=== PATIENT | male | born 1955 | race Caucasian/White ===

== ENCOUNTER 2016-11-19 10:22 | Inpatient (IN) | payer BC ==
[2016-11-19 10:28] VITALS: BMI 39.4
--- NOTE | 2016-11-19 10:43 | PDOC ---
History of Present Illness - General Chief Complaint: Chest Pain Stated Complaint: CHEST PAIN (PCP SENT) Time Seen by Provider: 11/19/16 10:41 History Source: Patient Exam Limitations: No Limitations - History of Present Illness Initial Comments: 11/19/16 10:42 CHIEF COMPLAINT: Chest pain HISTORY OF PRESENT ILLNESS: This is a 61 year old male former smoker (quit 4 months ago) with a history of HTN referred for evaluation from his PCP's office. He complains that yesterday while at rest, he developed squeezing left- sided chest pain with associated shortness of breath and diaphoresis. Chest pain has resolved but he still has some left arm pain, and he continues to feel short of breath. He denies cough, fevers/chills, orthopnea, PND, LE edema, or any other symptoms. V/s on arrival are notable for BP 166/98 and RR 22. PCP is Dr. Renee. REVIEW OF SYSTEMS: GENERAL/CONSTITUTIONAL: No fever or chills. No weakness. No weight change. HEAD, EYES, EARS, NOSE AND THROAT: No change in vision. No ear pain or discharge. No sore throat. CARDIOVASCULAR: See HPI. RESPIRATORY: No cough or wheezing. GASTROINTESTINAL: No nausea, vomiting, diarrhea or constipation. GENITOURINARY: No dysuria, frequency, or change in urination. MUSCULOSKELETAL: No joint or muscle swelling or pain. No neck or back pain. SKIN: No rash or easy bruising. NEUROLOGIC: No headache, vertigo, loss of consciousness, or loss of sensation. PSYCHIATRIC: Anxiety/stress. ENDOCRINE: No increased thirst. No abnormal weight change. HEMATOLOGIC/LYMPHATIC: No anemia, easy bleeding, or history of blood clots. ALLERGIC/IMMUNOLOGIC: No hives or skin allergy. No latex allergy. PHYSICAL EXAM: GENERAL: The patient is awake, alert, and fully oriented, in no acute distress. HEAD: Normal with no signs of trauma. ENT: Pupils equal, round and reactive to light, extraocular movements intact, sclera anicteric, conjunctiva clear. Neck supple. LUNGS: Tachypneic. Able to speak full sentences. Lungs CTAB. CV: RRR, S1/S2, no MRG. Cap refill < 2 sec. ABDOMEN: Soft, obese, non-tender. EXTREMITIES: Normal range of motion. 1+ pitting LE edema bilaterally. NEUROLOGICAL: Normal speech, normal gait. CN II-XII grossly intact. PSYCH: Normal mood, normal affect. SKIN: Warm, dry, normal turgor, no rashes or lesions noted. Past History - Past Medical History Allergies/Adverse Reactions: Allergies Allergy/AdvReac Type Severity Reaction Status Date / Time No Known Allergies Allergy Verified 11/19/16 10:28 Home Medications: Ambulatory Orders Aspirin [ASA -] 81 mg PO DAILY 11/19/16 - Psycho/Social/Smoking Cessation Hx Suicidal Ideation: No Smoking History: Never smoked Have you smoked in the past 12 months: No Information on smoking cessation initiated: No *Physical Exam - Vital Signs Last Vital Signs Temp Pulse Resp BP Pulse Ox 98 F 70 18 166/98 97 11/19/16 10:25 11/19/16 10:25 11/19/16 10:25 11/19/16 10:25 11/19/16 10:25 Heart Score/ECG Review - History History: Moderately suspicious - Electrocardiogram EKG: Normal - Age Age: 45-65 - Risk Factors Risk Factors Heart Score: Yes Hx Hypertension, Yes Hx Obesity Based on the list above the patient has:: 1-2 risk factors - Troponin Troponin: </= normal limit - Score Heart Score - Total: 3 - ECG Intrepretation Comment:: 11/19/16 10:51 NSR at 67 bpm, no ST or T wave changes ED Treatment Course - LABORATORY CBC & Chemistry Diagram: 11/19/16 11:10 11/19/16 11:10 Medical Decision Making - Medical Decision Making 11/19/16 11:27 A/P: 61 year old male with chest pain and SOB. 1. EKG 2. CXR: cardiomegaly, pulmonary vascular congestion 3. Cardiac labs 4. ASA 162mg 5. Lasix 20mg IVP 6. Cardiology consultation - seen by Dr. Miller, recommends adding nitro SL 7. Admit - discussed with Dr. Beaver *DC/Admit/Observation/Transfer Diagnosis at time of Disposition: Chest pain, Shortness of breath - Discharge Dispostion Admit: Yes - Referrals Referrals: Chintan Renee MD [Primary Care Provider] -
[2016-11-19] MEDS ORDERED: ASPIRIN 81 MG CHEWABLE TABLETS PO ONE (10:56)
[2016-11-19 11:17] LABS: BASOPHIL 0.8 % (0-2.0); EOSINOPHIL 2.2 % (0-4.5); MCH 33.3 pg (25.7-33.7); MCHC 33.9 g/dl (32.0-35.9); MEAN CELL VOLUME 98.2 fl (80-96); MEAN PLT VOLUME 9.1 fl (7.5-11.1); NEUTROPHILS 65.9 % (42.8-82.8); PLATELET COUNT 183 K/MM3 (134-434); RDW 13.3 % (11.9-15.9); WHITE BLOOD COUNT 8.6 K/mm3 (4.0-10.0)
[2016-11-19] MEDS ORDERED: FUROSEMIDE 40 MG/4 ML INJECTABLE VIAL IVPUSH ONE (11:21)
[2016-11-19] MEDS ORDERED: METOPROLOL TARTRATE 50 MG TABLET (FP) PO ONE (11:26)
--- NOTE | 2016-11-19 11:32 | CON.CARD ---
Consult Consult Specialty:: cardio Referred by:: niko Reason for Consultation:: cp, sob - History of Present Illness Chief Complaint: same History of Present Illness: 61 yo male presented from pmd office, with cp yesterday. had nonexertional L cp yesterday. occurred at approximately 5pm, while seated on cough. upper L pectoral region, no radiation and no assctd diaph/sob/LH. lasted all night, fell asleep off and on but constantly present--though much milder than at onset. persisted since awoke this am. assctd as well with localized upper, medial L arm discomfort though cp not radiating. not positional or pleuritic. never had it before. earlier in the day he noted mild sob at rest and with walking, no difference. not assctd with the cp. has had this sob off and on, same exact sx, ever since quit smoking 4 mo ago EKG in ER: NSR, WNL CXR: not yet reported, reviewed by me--? vasc redistribution and mild interstitial edema (vs soft tissue marking); normal CMS; no effusions PMH: obesity HTN cigs (quit few mo ago) - Smoking History Smoking history: Never smoked Have you smoked in the past 12 months: No Home Medications - Allergies Allergies/Adverse Reactions: Allergies Allergy/AdvReac Type Severity Reaction Status Date / Time No Known Allergies Allergy Verified 11/19/16 10:28 - Home Medications Home Medications: Ambulatory Orders Aspirin [ASA -] 81 mg PO DAILY 11/19/16 Family Disease History - Family Disease History Family History: Denies (no MIs) Review of Systems - Review of Systems Constitutional: denies: Chills, Fever Eyes: denies: Eye Pain HENT: denies: Nasal Congestion Neck: denies: Stiffness Cardiovascular: denies: Palpitations Respiratory: denies: Orthopnea, PND Gastrointestinal: denies: Diarrhea, Rectal Bleeding Genitourinary: denies: Burning, Hematuria Musculoskeletal: denies: Muscle Pain Integumentary: denies: Rash Neurological: denies: Numbness, Seizure, Syncope Endocrine: denies: Excessive Sweating Hematology/Lymphatic: denies: Excessive Bleeding Vital Signs: Vital Signs Temperature 98 F 11/19/16 10:25 Pulse Rate 70 11/19/16 10:25 Respiratory Rate 18 11/19/16 10:25 Blood Pressure 166/98 11/19/16 10:25 O2 Sat by Pulse Oximetry (%) 98 11/19/16 11:13 Constitutional: Yes: Well Nourished, No Distress Eyes: No: Sclera Icterus HENT: No: Nasal Congestion Neck: No: Decreased ROM Respiratory: Yes: CTA Bilaterally. No: Accessory Muscle Use, Rales, Wheezes Gastrointestinal: Yes: Normal Bowel Sounds. No: Distention, Hepatomegaly, Palpable Mass, Tenderness Cardiovascular: Yes: Regular Rate and Rhythm JVD: No Carotid Bruit: No PMI: Non-Displaced Heart Sounds: Yes: S1, S2. No: Gallop Murmur: No: Systolic Murmur, Diastolic Murmur Musculoskeletal: Yes: Other (No kyphosis no chest wall tendernedss) Extremities: No: Cold, Cyanosis Edema: No Peripheral Pulses: 2+ Left Carotid, 2+ Right Carotid, 2+ Left Doralis Pedis, 2+ Right Dorsalis Pedis Integumentary: No: Jaundice Neurological: Yes: Alert, Oriented (x3) Psychiatric: No: Agitated - Other Data Labs, Other Data: CBC, BMP 11/19/16 11:10 Assessment/Plan chest pain, possibly unstable angina: -no ekg changes -troponin x 1 pending (note: pain occurred yesterday approximately 5pm) -given cp has not remitted for >12 hours now, if enzymes and ekg normal, it is highly unlikely sec to acute plaque rupture/ACS -will plan nuclear stress test here in hospital (today vs tomorrow, depending on enzymes) -trial of SL nitro x 1 now HTN: -initial bp elevated -observe trend sob: -sx began since quit cigs -suspect copd -cxr equivocal for chf, neck veins tds (habitus) -ok with one dose iv lasix (ordered in ER) -check echo -bnp
[2016-11-19 11:34] LABS: INR 1.02 (0.82-1.09); PROTHROMBIN TIME (PATIENT) 11.2 SEC (9.98-11.88)
[2016-11-19 11:37] LABS: ALBUMIN 3.6 g/dl (3.4-5.0); ANION GAP 10 (8-16); BILIRUBIN,TOTAL 0.6 mg/dL (0.2-1.0); CALCIUM 8.7 mg/dL (8.5-10.1); CO2 26 mmol/L (21-32); CREATININE 0.6 mg/dL (0.7-1.3); GLUCOSE,RANDOM 114 mg/dL (74-106); SGOT/AST 19 U/L (15-37); SGPT/ALT 45 U/L (12-78); TOT PROT 6.8 g/dl (6.4-8.2)
[2016-11-19] MEDS ORDERED: NITROGLYCERIN SUBLINGUAL 1/150 0.4 MG TAB SL ONE (11:38)
[2016-11-19 11:40] LABS: ALK PHOS 68 U/L (45-117); TROPONIN I < 0.02 ng/ml (0.00-0.05)
[2016-11-19] MEDS ORDERED: ASPIRIN 81 MG CHEWABLE TABLETS ONE (11:41)
[2016-11-19] MEDS ORDERED: NITROGLYCERIN SUBLINGUAL 1/150 0.4 MG TAB ONE (11:41)
[2016-11-19] MEDS ORDERED: FUROSEMIDE 40 MG/4 ML INJECTABLE VIAL ONE (11:42)
[2016-11-19] MEDS ORDERED: ACETAMINOPHEN 325 MG TABLET (FP) PO PRN (20:51)
[2016-11-19 21:16] LABS: TROPONIN I < 0.02 ng/ml (0.00-0.05)
[2016-11-19] MEDS ORDERED: ATORVASTATIN CA 20 MG TABLET (FP) PO SCH (22:00)
--- NOTE | 2016-11-20 02:04 | HP ---
Admitting History and Physical - Primary Care Physician PCP: Chintan Renee - Admission Chief Complaint: Chest pain History of Present Illness: progress note for 11/20/19, Around 4 PM yesterday while watching TV developed severe chest pain with severe tightness without any diaphoresis or SOB which continue for about an hour, went to his bed and fell a sleep, woke up couple of hours later and still had chest pain but less. This AM continued to have chest pain and came to my office and was sent to ED. EKG as well enzymes were normal. Was seen by Dr. Ra Miller and admitted for possible IHD. He is a diabetic with HTN, hyperlipidemia, smoking history and severe obesity. History Source: Patient Limitations to Obtaining History: No Limitations - Past Medical History Cardiovascular: Yes: HTN, Hyperlipdemia Pulmonary: Yes: COPD Musculoskeletal: Yes: Chronic low back pain - Smoking History Smoking history: Current every day smoker Have you smoked in the past 12 months: Yes - Alcohol/Substance Use Hx Alcohol Use: No History of Substance Use: reports: None - Social History Usual Living Arrangement: Yes: With Spouse ADL: Independent History of Recent Travel: No Home Medications - Allergies Allergies/Adverse Reactions: Allergies Allergy/AdvReac Type Severity Reaction Status Date / Time No Known Allergies Allergy Verified 11/19/16 10:28 - Home Medications Home Medications: Ambulatory Orders Amlodipine Besylate 5 mg PO DAILY 11/19/16 Aspirin [ASA -] 81 mg PO DAILY 11/19/16 Atorvastatin Ca [Lipitor] 20 mg PO HS 11/19/16 Glimepiride [Amaryl -] 2 mg PO DAILY 11/19/16 Metoprolol Succinate [Toprol Xl -] 25 mg PO DAILY 11/19/16 Valsartan/Hydrochlorothiazide [Valsartan-Hctz 320-12.5 mg Tab] 1 tab PO DAILY Review of Systems - Review of Systems Constitutional: reports: No Symptoms Eyes: reports: No Symptoms HENT: reports: No Symptoms Neck: reports: No Symptoms Cardiovascular: reports: Chest Pain Respiratory: reports: SOB on Exertion, Wheezing Gastrointestinal: reports: No Symptoms Genitourinary: reports: No Symptoms Breasts: reports: No Symptoms Reported Musculoskeletal: reports: Back Pain Integumentary: reports: No Symptoms Neurological: reports: No Symptoms Endocrine: reports: No Symptoms Hematology/Lymphatic: reports: No Symptoms Physical Examination Vital Signs: Vital Signs Temperature 97.9 F 11/19/16 20:51 Pulse Rate 68 11/19/16 20:51 Respiratory Rate 20 11/19/16 20:51 Blood Pressure 152/91 11/19/16 20:51 O2 Sat by Pulse Oximetry (%) 96 11/19/16 20:17 Findings/Remarks: Very obese Constitutional: Yes: Calm Eyes: Yes: Conjunctiva Clear, EOM Intact HENT: Yes: WNL Neck: Yes: Supple Cardiovascular: Yes: Regular Rate and Rhythm, S1, S2 Respiratory: Yes: Regular, Diminished Gastrointestinal: Yes: Normal Bowel Sounds, Soft Renal/: Yes: WNL Breast(s): Yes: WNL Musculoskeletal: Yes: Back Pain Extremities: Yes: WNL Edema: No Peripheral Pulses WNL: Yes Integumentary: Yes: WNL Neurological: Yes: Alert, Oriented Imaging - Results EKG: Report Reviewed Problem List - Problems (1) Chest pain at rest Assessment/Plan: Continues to have mild chest pain now but cardiac enzymes are normal Code(s): R07.9 - CHEST PAIN, UNSPECIFIED (2) Hypertension Assessment/Plan: Controlled with meds Code(s): I10 - ESSENTIAL (PRIMARY) HYPERTENSION (3) Diabetes Assessment/Plan: Controlled with meds, diet Code(s): E11.9 - TYPE 2 DIABETES MELLITUS WITHOUT COMPLICATIONS (4) Hyperlipidemia Code(s): E78.5 - HYPERLIPIDEMIA, UNSPECIFIED (5) Obesity (BMI 30.0-34.9) Code(s): E66.9 - OBESITY, UNSPECIFIED Assessment/Plan If enzymes remain normal will undergo stress sestamibi and accordingly further management.
[2016-11-20 07:58] LABS: CHOLESTEROL 161 mg/dL (50-200); LDL CHOLESTEROL (ONLY SJRH) 99 mg/dL (5-100)
--- NOTE | 2016-11-20 09:38 | PN ---
Progress Note (short form) - Note Progress Note: Chief Complaint: cp, sob S: no cp, palps, sob, dizziness Current Medications Acetaminophen (Tylenol -) 650 mg PO Q6H PRN PRN Reason: FEVER OR PAIN Last Admin: 11/19/16 21:02 Dose: 650 mg Atorvastatin Calcium (Lipitor -) 20 mg PO HS SOL Last Admin: 11/19/16 21:02 Dose: 20 mg Vital Signs - 24 hr 11/19/16 11/19/16 11/19/16 10:25 11:13 15:38 Temperature 98 F 98 F Pulse Rate 70 Pulse Rate [ 73 Apical] Respiratory 18 17 Rate Blood Pressure 166/98 Blood Pressure 117/59 [Right Arm] O2 Sat by Pulse 97 98 96 Oximetry (%) 11/19/16 11/19/16 11/19/16 16:55 20:17 20:51 Temperature 98 F 97.9 F Pulse Rate 70 68 Pulse Rate [ Apical] Respiratory 22 20 Rate Blood Pressure 154/96 152/91 Blood Pressure [Right Arm] O2 Sat by Pulse 96 Oximetry (%) 11/20/16 11/20/16 02:04 04:54 Temperature 97.7 F Pulse Rate 57 L 63 Pulse Rate [ Apical] Respiratory 18 20 Rate Blood Pressure 148/89 Blood Pressure [Right Arm] O2 Sat by Pulse Oximetry (%) Intake & Output 11/18/16 11/19/16 11/20/16 11/21/16 07:59 07:59 07:59 07:59 Weight 275 lb 0.003 oz Constitutional: Yes: Well Nourished, No Distress Eyes: No: Sclera Icterus HENT: No: Nasal Congestion Neck: No: Decreased ROM Respiratory: Yes: CTA Bilaterally. No: Accessory Muscle Use, Rales, Wheezes Gastrointestinal: Yes: Normal Bowel Sounds. No: Distention, Hepatomegaly, Palpable Mass, Tenderness Cardiovascular: Yes: Regular Rate and Rhythm JVD: No Carotid Bruit: No PMI: Non-Displaced Heart Sounds: Yes: S1, S2. No: Gallop Murmur: No: Systolic Murmur, Diastolic Murmur Musculoskeletal: Yes: Other (No kyphosis no chest wall tendernedss) Extremities: No: Cold, Cyanosis Edema: No Peripheral Pulses: 2+ Left Carotid, 2+ Right Carotid, 2+ Left Doralis Pedis, 2+ Right Dorsalis Pedis Integumentary: No: Jaundice Neurological: Yes: Alert, Oriented (x3) Psychiatric: No: Agitated - Other Data Labs, Other Data: CBC, BMP 11/19/16 11:10 11/19/16 11:10 Laboratory Tests 11/19/16 11/19/16 11/20/16 11:10 20:00 05:35 Troponin I < 0.02 < 0.02 B-Natriuretic Peptide 15.99 Triglycerides 147 Cholesterol 161 Total LDL Cholesterol 99 HDL Cholesterol 65 H EKG in ER: NSR, WNL CXR: reviewed by Gitdarryn: ? vasc redistribution and mild interstitial edema (vs soft tissue marking); no effusions --> final report: CM with vascular engorgement echo here: nl lv/rv. diastolic impairment. nl valves. stress here: asx. no ekg changes. small area of fixed inferobasal defect compatible with diaphragmatic attenuation. nl lvef. Assessment/Plan 61 yo recent smoker (quit a few months ago) with h/o HTN, obesity p/w cp, sob. chest pain, possibly unstable angina: -no ekg changes. echo without RWMA. -given cp has for >12 hours and enzymes and ekg normal, --> highly unlikely sec to acute plaque rupture/ACS -nuclear stress test here in hospital neg for ischemia. HTN: -bp elevated. patient confirms he was on anti-hypertensives as outpatient ( although not listed here on home medications) . Can resume on d/c. sob: -sx began since quit cigs -suspect copd -cxr equivocal for chf, neck veins tds (habitus) -s/p one trial dose of iv lasix (ordered in ER) 11/19. bnp wnl. would not diuresis further
[2016-11-20] MEDS ORDERED: DIPYRIDAMOLE 50 MG/10 ML VIAL IVPB ONE ×2 (14:26→14:30)
[2016-11-20] MEDS ORDERED: AMINOPHYLLINE 250 MG/10 ML VIAL ONE (15:20)
[2016-11-20] MEDS ORDERED: DIPYRIDAMOLE STRESS TEST 50 MG in DEXTROSE 5%-WATER - 40 ML IVPB ONE (15:45)
--- NOTE | 2016-11-20 17:30 | EKG ---
Test Reason : Blood Pressure : / mmHG Vent. Rate : 061 BPM Atrial Rate : 061 BPM P-R Int : 160 ms QRS Dur : 094 ms QT Int : 438 ms P-R-T Axes : 042 033 056 degrees QTc Int : 440 ms NORMAL SINUS RHYTHM NORMAL ECG WHEN COMPARED WITH ECG OF 19-NOV-2016 10:31, NO SIGNIFICANT CHANGE WAS FOUND Confirmed by PATRICIA RODRIGUEZ MD ([id number]) on 11/20/2016 5:30:29 PM Referred By: Nancy RAMOS Confirmed By:PATRICIA RODRIGUEZ MD
--- NOTE | 2016-11-20 17:39 | EKG ---
Test Reason : Blood Pressure : / mmHG Vent. Rate : 067 BPM Atrial Rate : 067 BPM P-R Int : 134 ms QRS Dur : 094 ms QT Int : 426 ms P-R-T Axes : 030 050 061 degrees QTc Int : 450 ms NORMAL SINUS RHYTHM NORMAL ECG WHEN COMPARED WITH ECG OF 15-JUN-2009 08:48, NO SIGNIFICANT CHANGE WAS FOUND Confirmed by PATRICIA RODRIGUEZ MD ([id number]) on 11/20/2016 5:39:13 PM Referred By: Confirmed By:PATRICIA RODRIGUEZ MD
[2016-11-20 17:59] VITALS: BP 145/85; PULSE 78; TEMP 98
--- NOTE | 2016-11-20 19:55 | PN ---
Progress Note, Physician History of Present Illness: No chest pain, no SOB, no palpitations - Current Medication List Current Medications: Active Medications Acetaminophen (Tylenol -) 650 mg PO Q6H PRN PRN Reason: FEVER OR PAIN Last Admin: 11/19/16 21:02 Dose: 650 mg Atorvastatin Calcium (Lipitor -) 20 mg PO HS SOL Last Admin: 11/19/16 21:02 Dose: 20 mg - Objective Vital Signs: Vital Signs Temperature 98.0 F 11/20/16 17:55 Pulse Rate 78 11/20/16 17:55 Respiratory Rate 19 11/20/16 17:55 Blood Pressure 145/85 11/20/16 17:55 O2 Sat by Pulse Oximetry (%) 93 L 11/20/16 09:00 Constitutional: Yes: No Distress, Calm Eyes: Yes: WNL HENT: Yes: WNL Neck: Yes: WNL, Supple Cardiovascular: Yes: Regular Rate and Rhythm, S1, S2 Respiratory: Yes: Regular, CTA Bilaterally Gastrointestinal: Yes: Normal Bowel Sounds, Soft Genitourinary: Yes: WNL Musculoskeletal: Yes: Back Pain Extremities: Yes: WNL Edema: No Peripheral Pulses WNL: Yes Integumentary: Yes: WNL Neurological: Yes: Alert, Oriented ...Motor Strength: WNL Psychiatric: Yes: Alert, Oriented Labs: INR, PTT INR 1.02 (0.82-1.09) 11/19/16 11:10 - ....Imaging Chest X-ray: Report Reviewed, Image Reviewed Problem List - Problems (1) Chest pain at rest Assessment/Plan: Cardiac stress test is negative Code(s): R07.9 - CHEST PAIN, UNSPECIFIED (2) Hypertension Assessment/Plan: Hypertension under good control Code(s): I10 - ESSENTIAL (PRIMARY) HYPERTENSION (3) Diabetes Code(s): E11.9 - TYPE 2 DIABETES MELLITUS WITHOUT COMPLICATIONS (4) Hyperlipidemia Code(s): E78.5 - HYPERLIPIDEMIA, UNSPECIFIED (5) Obesity (BMI 30.0-34.9) Code(s): E66.9 - OBESITY, UNSPECIFIED Assessment/Plan Cardiac stress test is negative. Advised patient to loose weight. To continue all meds. Gradual increase in exercise. Will follow in my office in a month
== END 2016-11-20 20:21 | disposition home or self-care (01) | DRG 313 ==
LOC: JER 10:22 → JERBED 11:34 → J4W 16:51
PROVIDERS: ADMIT Internal Medicine Hematology & Oncology; ATTEND Internal Medicine Hematology & Oncology
DX: R07.9 Chest pain, unspecified (principal); J44.9 Chronic obstructive pulmonary disease, unspecified; I10 Essential (primary) hypertension; E66.9 Obesity, unspecified; Z68.39 Body mass index [BMI] 39.0-39.9, adult; Z87.891 Personal history of nicotine dependence; E78.5 Hyperlipidemia, unspecified; E11.9 Type 2 diabetes mellitus without complications; Z79.84 Long term (current) use of oral hypoglycemic drugs
CPT/HCPCS: 36415; 71010-TC; 78452-TC; 80053; 80061; 82550; 83721; 83880; 84484; 85025; 85610; 93005; 93010; 93017; 93306-TC; 99285-25; A9502; J1245